=== PATIENT | male | born 1990 | race African-American/Black ===

== ENCOUNTER 2021-09-18 15:57 | Emergency (ER) | payer SELFPAY ==
[~2021-09-18] VITALS: Ht 188 cm; Wt 98.0 kg
[2021-09-18 16:20] VITALS: BP 128/78
--- NOTE | 2021-09-18 16:55 | PHYS DOC ---
Past Medical History Past Surgical History: No Surgical History General Adult EDM: Chief Complaint: UPPER EXTREMITY PAIN HPI: HPI: Patient is a 31 year old male with no significant medical history who presents to the ED today complaining of 7 out of 10 throbbing intermittent left biceps pain, symptoms began a week ago while lifting a garage door. Patient states he heard "a snap" sound from the left biceps. He states initially he was not able to fully extend the left forearm but currently he is able to flex and extend the left forearm. He presents today to be evaluated for possible biceps tear. Patient is right-handed. Review of Systems: Review of Systems: Constitutional: Denies fever or chills. [] Musculoskeletal: Reports left biceps pain Integument: Denies rash. [] Neurologic: Denies headache, focal weakness or sensory changes. [] ] Psychiatric: Denies depression or anxiety. [] Heart Score: C/O Chest Pain: N/A Risk Factors: Risk Factors: DM, Current or recent (<one month) smoker, HTN, HLP, family history of CAD, obesity. Risk Scores: Score 0 - 3: 2.5% MACE over next 6 weeks - Discharge Home Score 4 - 6: 20.3% MACE over next 6 weeks - Admit for Clinical Observation Score 7 - 10: 72.7% MACE over next 6 weeks - Early Invasive Strategies Allergies: Allergies: Allergies Coded Allergies Type Severity Reaction Last Updated Verified No Known Drug Allergies 09/18/21 No Physical Exam: PE: Constitutional: Well developed, well nourished, no acute distress, non-toxic appearance. [] Skin: Warm, dry, no erythema, no rash. [] Back: No tenderness, no CVA tenderness. [] Extremities: Left biceps proximal and with a slight indentation, some bruising noted to this region with indentation, no tenderness on palpation of the left biceps. Full range of motion to the left upper extremity including flexion and extension of the left forearm. 5 out of 5 strength to the left upper extremity. Negative hook test, +2 left radial pulse. Adequate radial, median, ulnar sensation to the left upper extremity. Neurologic: Alert and oriented X 3, normal motor function, normal sensory function, no focal deficits noted. [] Psychologic: Affect normal, judgement normal, mood normal. [] Current Patient Data: Vital Signs: Vital Signs Date Time Temp Pulse Resp B/P (MAP) Pulse Ox O2 Delivery O2 Flow Rate FiO2 09/18/21 16:20 98.8 80 16 128/78 (95) 98 Room Air 98.8 EKG: EKG: [] Radiology/Procedures: Radiology/Procedures: [] Course & Med Decision Making: Course & Med Decision Making Pertinent Labs and Imaging studies reviewed. (See chart for details) This a 31-year-old male patient presenting to the ED today concerned he has a partial tear to his left biceps that occurred a week ago when lifting a garage door. Patient has full function to the left upper extremity. He could have a partial tear. Given orthopedic doctor to follow-up as an outpatient. Dr. Doss also evaluated patient. Dragon Disclaimer: Dragon Disclaimer: This electronic medical record was generated, in whole or in part, using a voice recognition dictation system. Departure Departure Impression: Primary Impression: Strain of left biceps muscle Qualified Codes: S46.212A - Strain of muscle, fascia and tendon of other parts of biceps, left arm, initial encounter Disposition: HOME / SELF CARE / HOMELESS Condition: STABLE Referrals: NO PCP (PCP) RAJINDER BARTH II, MD call his office tomorrow and set up a follow up appointment Patient Instructions: Muscle Strain, [id number] Additional Instructions: You were evaluated in the emergency room with concern for partial tear to the left biceps. We highly recommend you contact the provided orthopedic doctor in the course of this week and set up a follow-up appointment. CHELA US APRN Sep 18, 2021 16:55
== END 2021-09-18 17:16 | disposition home or self-care (01) ==
LOC: ER 15:57
DX: S46.212A Strain of muscle, fascia and tendon of other parts of biceps, left arm, initial encounter (principal); X50.0XXA Overexertion from strenuous movement or load, initial encounter; Y93.89 Activity, other specified; Y92.89 Other specified places as the place of occurrence of the external cause; Y99.8 Other external cause status
CPT/HCPCS: 99281